=== PATIENT | female | born 1990 | race African-American/Black ===

== ENCOUNTER 2018-06-03 18:34 | Emergency (ER) | payer OTHER ==
[~2018-06-03] VITALS: Ht 170.2 cm; Wt 86.2 kg
[2018-06-03 18:38] VITALS: BP 116/87; Ht 170.2 cm; Wt 86.2 kg
== END 2018-06-03 18:45 | disposition left against medical advice (07) ==
LOC: ED 18:34
DX: Z53.21 Procedure and treatment not carried out due to patient leaving prior to being seen by health care provider (principal)